=== PATIENT | female | born 1955 | race Caucasian/White ===

== ENCOUNTER 2024-10-01 09:25 | Emergency (ER) | payer OTHER ==
[2024-10-01] MEDS ORDERED: NA CHLORIDE 0.9% 500 ML ONE (09:48)
[2024-10-01] MEDS ORDERED: ASPIRIN 81 MG CHEWABLE TABLET ONE (09:48)
[2024-10-01] MEDS ORDERED: FAMOTIDINE 20 MG/2 ML VIAL IV ONE (09:48)
[2024-10-01 10:00] LABS: Absolute Basophils 0.1 K/uL (0-0.5); Absolute Eosinophils 0.3 K/uL (0-0.5); Absolute Lymphocytes (CBC) 1.7 K/uL (0.7-4.9); Absolute Monocytes 0.4 K/uL (0.1-1.3); Absolute Neutrophil 2.8 K/uL (1.8-8.0); Basophils % 1.2 % (0-1.3); Hematocrit 41.7 % (36.0-45.0); Hemoglobin 13.9 g/dL (12.0-15.0); Lymphocytes % 32.2 % (15.3-44.8); MCH 31.6 pg (27.0-35.0); MCHC 33.3 g/dL (32.0-36.0); MPV 8.3 fL (7.6-11.3); Monocytes % 7.3 % (3.3-12.3); Neutrophils % 54.3 % (41.7-73.7); Nucleated Red Blood Cells % 0.1 % (0-0); Platelets 214 thou/uL (152-406); RBC Red Blood Cell Count 4.39 M/uL (3.86-4.86); Red Cell Distribution Width 12.9 % (12.1-15.2)
[2024-10-01 10:08] LABS: PT Prothrombin Time 11.2 SECONDS (10-13.0); Protime INR 0.98
[2024-10-01 10:26] LABS: ALT/SGPT 25 U/L (13-56); AST/SGOT 20 U/L (15-37); Albumin 3.4 g/dL (3.4-5.0); Albumin/Globulin Ratio 1.1 (1.1-1.8); Alkaline Phosphatase 76 U/L (45-117); Anion Gap 7.8 mEq/L (5.0-15.0); BUN Blood Urea Nitrogen 7 mg/dL (7-18); Bicarbonate 27 mEq/L (21-32); Bilirubin Total 0.3 mg/dL (0.2-1.0); Globulin 3.2 g/dL (2.3-3.5); Glomerular Filtration Rate 94 ml/min (=/>90); Glucose Level 111 mg/dL (74-106); Lipase 27 U/L (13-75); Magnesium 2.3 mg/dL (1.6-2.4); NT PRO-BNP 181 pg/mL (<125); Potassium 3.8 mEq/L (3.5-5.1); Protein, Total 6.6 g/dL (6.4-8.2); Sodium Level 139 mEq/L (136-145)
[2024-10-01 10:28] LABS: Bilirubin Direct < 0.2 mg/dL (0-0.2); Bilirubin Indirect, Calculated 0.1 mg/dL (0.2-0.8); Troponin High Sensitivity < 3.0 pg/mL (<58.9)
--- NOTE | 2024-10-01 10:45 | RAD REPORT ---
EXAMINATION: ONE VIEW CHEST XR CLINICAL INDICATION: Female, 68 years old.,CHEST PAIN TECHNIQUE: Frontal chest projection is submitted. Examination is limited by patient positioning and t echnique. COMPARISON: 07/14/2020 FINDINGS: The lungs are well inflated and clear. Mild hyperlucency again seen. No pneumothorax or sizable effus ion. The heart is normal in size. Mediastinal contours are unremarkable. IMPRESSION: No acute intrathoracic abnormalities.
--- NOTE | 2024-10-01 11:21 | RAD REPORT ---
EXAM: CT CHEST, ABDOMEN AND PELVIS WITH CONTRAST CLINICAL INDICATION: Female, 68 years old. Chest pain;Abdominal distention TECHNIQUE: CT chest, abdomen, and pelvis was performed, following the administration of contrast, as per department protocol. Axial, sagittal and coronal reconstructions were obtained. One or more of the following dose reduction techniques were used: Automated exposure control, adjustment of the mA a nd/or kV according to patient size, and/or iterative reconstruction. Unless otherwise specified, incidental findings do not require dedicated imaging follow-up. COMPARISON: No prior exam. FINDINGS: LUNGS AND AIRWAYS: No evidence of airspace or interstitial process. No nodules. PLEURA: No pleural effusion. No pneumothorax. MEDIASTINUM AND LYMPH NODES: No mediastinal mass or fluid collection. Normal size mediastinal, hilar, and axillary lymph nodes. THORACIC AORTA: Mild fusiform dilation of the ascending thoracic aorta measuring 4.3 cm in caliber. PULMONARY ARTERIES: Normal caliber. OSSEOUS STRUCTURES AND CHEST WALL: Intact. LIVER: Normal in size and contour. No focal lesion or biliary dilitation. BILIARY SYSTEM: No suspicious abnormalities. PANCREAS: No mass, ductal dilation, or tena-pancreatic fluid. SPLEEN: Normal size. No focal lesion. ADRENALS: Normal; no mass. KIDNEYS AND URETERS: Right midpole 1.6 cm cortical fluid density cyst, and other smaller cortical hyp oattenuating foci on the left, may represent small cysts but difficult to characterize given small size. Normal size and contour. No hydronephrosis. URINARY BLADDER: Normal contour. GASTROINTESTINAL TRACT: No bowel obstruction, free air, significant free fluid or abscess. Mild dist al colonic diverticulosis without evidence of acute diverticulitis. APPENDIX: No inflammatory changes in region of appendix. LYMPH NODES: No lymphadenopathy. ABDOMINAL AORTA AND OTHER VESSELS: Normal caliber aorta and IVC. MUSCULOSKELETAL: No acute or suspicious osseous abnormality. Status post hysterectomy. IMPRESSION: No acute abnormalities seen in the chest, abdomen or pelvis. Mild fusiform aneurysmal dilation of the ascending thoracic aorta measuring 4.3 cm in caliber. Other incidental findings as above.
--- NOTE | 2024-10-01 11:24 | ER ---
Nurse's Notes [facility] Name: Irina Alcala Age: 68 yrs Sex: Female : 1955 Arrival Date: 10/01/2024 Time: 09:25 Bed 7 Private MD: Diagnosis: Chest pain, unspecified;Functional dyspepsia;Essential (primary) hypertension;Aortic aneurysm of unspecified site, without rupture Presentation: 10/01 09:25 Chief complaint: Patient states: Chest pain that began Tuesday, indigestion that began ss Tuesday. Coronavirus screen: Client denies travel out of the [place] in the last 14 days. Ebola Screen: Patient denies exposure to infectious person. Patient denies travel to an Ebola-affected area in the 21 days before illness onset. Initial Sepsis Screen: Does the patient meet any 2 criteria? No. Patient's initial sepsis screen is negative. Does the patient have a suspected source of infection? No. Patient's initial sepsis screen is negative. Risk Assessment: Do you want to hurt yourself or someone else? Patient reports no desire to harm self or others. Onset of symptoms was September 28, 2024. 09:25 Method Of Arrival: Ambulatory ss 09:25 Acuity: DONAVAN 3 ss Historical: - Allergies: 09:53 Codeine; ss - Home Meds: 09:53 levothyroxine oral [Active]; estradiol 1 mg oral tablet 1 tab daily [Active]; ss olmesartan 20 mg oral tablet 1 tab daily [Active]; - PMHx: 09:53 Hypothyroidism; Hypertensive disorder; ss - Immunization history:: Adult Immunizations up to date. - Infectious Disease History:: Denies. - Social history:: Smoking status: Patient denies any tobacco usage or history of. Screenin:19 [facility] ED Fall Risk Assessment (Adult) History of falling in the last 3 months, ll1 including since admission No falls in past 3 months (0 pts) Confusion or Disorientation No (0 pts) Intoxicated or Sedated No (0 pts) Impaired Gait No (0 pts) Mobility Assist Device Used No (0 pt) Altered Elimination No (0 pt) Score/Fall Risk Level 0 - 2 = Low Risk Maintained a safe environment, Hourly rounding (assess needs \T\ fall precautionary measures) done. Abuse screen: Denies threats or abuse. Nutritional screening: No deficits noted. Tuberculosis screening: No symptoms or risk factors identified. Assessment: 09:50 General: Appears uncomfortable, Behavior is calm, cooperative, appropriate for age. ll1 Pain: Complains of pain in chest and abdomen Quality of pain is described as aching. Neuro: No deficits noted. GI: Reports upper abdominal pain, nausea. 09:55 Reassessment: No changes from previously documented assessment. Patient and/or family ll1 updated on plan of care and expected duration. Pain level reassessed. Patient is alert, oriented x 3, equal unlabored respirations, skin warm/dry/pink. 12:13 Reassessment: No changes from previously documented assessment. Patient and/or family ll1 updated on plan of care and expected duration. Pain level reassessed. Patient is alert, oriented x 3, equal unlabored respirations, skin warm/dry/pink. 12:13 GI: Bowel sounds present X 4 quads. Abd is soft and non tender X 4 quads. ll1 Vital Signs: 09:25 BP 152 / 81; Pulse 65; Resp 14; Temp 98.6(TE); Pulse Ox 97% on R/A; Weight 77.11 kg; ss Height 5 ft. 3 in. ; Pain 2/10; 10:00 BP 151 / 76; Pulse 59; Resp 16; Pulse Ox 98% ; ll1 11:10 BP 145 / 82; Pulse 66; Resp 17; Pulse Ox 99% on R/A; ap3 12:13 BP 132 / 81; Pulse 65; Resp 16; Pulse Ox 99% ; ll1 09:25 Body Mass Index 30.11 (77.11 kg, 160.02 cm) ss 09:25 Pain Scale: Adult ss ED Course: 09:26 Patient arrived in ED. al6 09:29 Juni Kirkland MD is Attending Physician. suma 09:44 Maylin Kenney, ESTIVEN is Primary Nurse. ll1 09:52 Initial lab(s) drawn, by me, sent to lab. Inserted saline lock: 20 gauge in right zm antecubital area, using aseptic technique. Blood collected. Flushed with 10 mL NS. 09:53 Triage completed. ss 09:53 Basic Metabolic Panel Sent. zm 09:53 CBC with Diff Sent. zm 09:53 LFT's Sent. zm 09:53 Magnesium Sent. zm 09:53 NT PRO-BNP Sent. zm 09:53 PT-INR Sent. zm 09:53 Troponin HS Sent. zm 09:53 Lipase Sent. zm 09:53 Arm band placed on right wrist. ss 10:00 Provided Education on: ER procedures and process. ll1 10:04 XRAY Chest (1 view) In Process Unspecified. EDMS 10:20 Patient has correct armband on for positive identification. Bed in low position. Client ll1 placed on continuous cardiac and pulse oximetry monitoring. NIBP monitoring applied. case management coordinator on. 10:58 CT Chest, Abdomen, Pelvis - W/Contrast In Process Unspecified. EDMS 11:49 No provider procedures requiring assistance completed. ap3 12:14 IV discontinued, intact, bleeding controlled, No redness/swelling at site. Pressure ll1 dressing applied. Administered Medications: 09:54 Drug: NS 0.9% IV 500 ml 500 ml IV at 1 bolus once; to be given as a bolus over 30 ll1 minutes Volume: 500 ml; Route: IV; Rate: 1 bolus; Site: right antecubital; 11:48 Follow up: IV Status: Completed infusion; IV Intake: 500ml ap3 09:54 Not Given (took aspirin 325 MG PO at 0500 this morningg): aspirinchewable tablet 81 mg ll1 PO once 09:55 Drug: Famotidine IVP 20 mg IVP once; dilute with 10 mL 0.9% NaCl; give over 2 minutes ll1 Route: IVP; Site: right antecubital; 11:48 Follow up: Response: No adverse reaction ap3 11:48 Drug: ToPROL XL PO 25 mg PO once Route: PO; ap3 12:14 Follow up: Response: No adverse reaction ll1 Medication: 10:19 VIS not applicable for this client. ll1 Intake: 11:48 IV: 500ml; Total: 500ml. ap3 Outcome: 11:23 Discharge ordered by . suma 11:49 Discharge instructions given to patient, family, Instructed on discharge instructions, ap3 follow up and referral plans. medication usage, Demonstrated understanding of instructions, follow-up care, medications, Prescriptions given X 3, 12:14 Discharged to home ambulatory, ll1 12:14 Condition: stable 12:15 Patient left the ED. ll1 Signatures: Dispatcher [employer] EDJuni Louise MD MD cha Blanchard, Shelby, RN RN ss Evelyne Langston, RN RN ap3 Maylin Kenney, RN RN ll1 Gissell Duggan Alissa al6
--- NOTE | 2024-10-01 11:24 | EDPHYS ---
Physician Documentation [facility] Name: Irina Alcala Age: 68 yrs Sex: Female : 1955 Arrival Date: 10/01/2024 Time: 09:25 Bed 7 Private MD: ED Physician Juni Kirkland HPI: 10/01 10:51 This 68 yrs old Female presents to ER via Ambulatory with complaints of [facility] Abdominal Pain, Chest Pain, High Blood Pressure, Headache, Arm Pain - left arm. 10:51 The patient or guardian reports chest pain that is located primarily in the anterior [facility] chest wall, bilaterally. The pain does not radiate. Associated signs and symptoms: The patient has no apparent associated signs or symptoms. The chest pain is described as causing indigestion. Modifying factors: The symptoms are alleviated by nothing. the symptoms are aggravated by nothing. Severity of pain: At its worst the pain was mild in the emergency department the pain is unchanged. The patient has not experienced similar symptoms in the past. Historical: - Allergies: 09:53 Codeine; ss - Home Meds: 09:53 levothyroxine oral [Active]; estradiol 1 mg oral tablet 1 tab daily [Active]; ss olmesartan 20 mg oral tablet 1 tab daily [Active]; - PMHx: 09:53 Hypothyroidism; Hypertensive disorder; ss - Immunization history:: Adult Immunizations up to date. - Infectious Disease History:: Denies. - Social history:: Smoking status: Patient denies any tobacco usage or history of. ROS: 10:56 Constitutional: Negative for fever, chills, and weight loss, Eyes: Negative for injury, suma pain, redness, and discharge, ENT: Negative for injury, pain, and discharge, Neck: Negative for injury, pain, and swelling, Respiratory: Negative for shortness of breath, cough, wheezing, and pleuritic chest pain, Back: Negative for injury and pain, : Negative for injury, bleeding, discharge, and swelling, MS/Extremity: Negative for injury and deformity, Skin: Negative for injury, rash, and discoloration, Psych: Negative for depression, anxiety, suicide ideation, homicidal ideation, and hallucinations, Allergy/Immunology: Negative for hives, rash, and allergies, Endocrine: Negative for neck swelling, polydipsia, polyuria, polyphagia, and marked weight changes, Hematologic/Lymphatic: Negative for swollen nodes, abnormal bleeding, and unusual bruising, 10:56 Cardiovascular: Positive for chest pain, 10:56 Abdomen/GI: Positive for abdominal pain, 10:56 Neuro: Positive for dizziness, Exam: 10:56 Constitutional: This is a well developed, well nourished patient who is awake, alert, suma and in no acute distress. Head/Face: Normocephalic, atraumatic. Eyes: Pupils equal round and reactive to light, extra-ocular motions intact. Lids and lashes normal. Conjunctiva and sclera are non-icteric and not injected. Cornea within normal limits. Periorbital areas with no swelling, redness, or edema. ENT: Nares patent. No nasal discharge, no septal abnormalities noted. Tympanic membranes are normal and external auditory canals are clear. Oropharynx with no redness, swelling, or masses, exudates, or evidence of obstruction, uvula midline. Mucous membranes moist. Neck: Trachea midline, no thyromegaly or masses palpated, and no cervical lymphadenopathy. Supple, full range of motion without nuchal rigidity, or vertebral point tenderness. No Meningismus. Chest/axilla: Normal chest wall appearance and motion. Nontender with no deformity. No lesions are appreciated. Cardiovascular: Regular rate and rhythm with a normal S1 and S2. No gallops, murmurs, or rubs. Normal PMI, no JVD. No pulse deficits. Respiratory: Lungs have equal breath sounds bilaterally, clear to auscultation and percussion. No rales, rhonchi or wheezes noted. No increased work of breathing, no retractions or nasal flaring. Abdomen/GI: Soft, non-tender, with normal bowel sounds. No distension or tympany. No guarding or rebound. No evidence of tenderness throughout. Back: No spinal tenderness. No costovertebral tenderness. Full range of motion. Skin: Warm, dry with normal turgor. Normal color with no rashes, no lesions, and no evidence of cellulitis. MS/ Extremity: Pulses equal, no cyanosis. Neurovascular intact. Full, normal range of motion., bilateral aka Neuro: Awake and alert, GCS 15, oriented to person, place, time, and situation. Cranial nerves II-XII grossly intact. Motor strength 5/5 in all extremities. Sensory grossly intact. Cerebellar exam normal. Normal gait. Psych: Awake, alert, with orientation to person, place and time. Behavior, mood, and affect are within normal limits. 10:56 ECG was reviewed by the Attending Physician. 10:56 Musculoskeletal/extremity: DVT Exam: No signs of deep vein thrombosis. no pain, no swelling, no tenderness, negative Homans' sign noted on exam, no appreciated bluish discoloration, no erythema, no increased warmth, Vital Signs: 09:25 BP 152 / 81; Pulse 65; Resp 14; Temp 98.6(TE); Pulse Ox 97% on R/A; Weight 77.11 kg; ss Height 5 ft. 3 in. ; Pain 2/10; 10:00 BP 151 / 76; Pulse 59; Resp 16; Pulse Ox 98% ; ll1 11:10 BP 145 / 82; Pulse 66; Resp 17; Pulse Ox 99% on R/A; ap3 12:13 BP 132 / 81; Pulse 65; Resp 16; Pulse Ox 99% ; ll1 09:25 Body Mass Index 30.11 (77.11 kg, 160.02 cm) ss 09:25 Pain Scale: Adult ss MDM: 09:29 Medical Screening Exam initiated suma 11:01 HEART Score: History: Slightly Suspicious (0), ECG: Normal (0), Age: > or = 65 years suma (2), Risk Factors: > or = 3 Risk factors for atherosclerotic disease (2), [Hypertension] [+ Family HX] Troponin: < or = 1 x Normal Limit (0), Total Score = 2. The patient was given aspirin in the Emergency Department. COURTNEY Risk Score: 1 - patient's age is greater or equal to 65 years, 1 - Three or more CAD risk factors, 1- Known CAD, 1 - ASA use in past 7 days, TOTAL SCORE = 4. Data reviewed: vital signs, nurses notes, lab test result(s), EKG, radiologic studies, CT scan, plain films. Consideration of Admission/Observation Patient was admitted/placed on observation. Escalation of care including admission/observation considered. I considered the following discharge prescriptions or medication management in the emergency department Medications were administered in the Emergency Department. See MAR. Independent interpretation of the following test(s) in the Emergency Department EKG: See my EKG interpretation above. Historians other than the Patient: pt well informed. 10/01 09:31 Order name: Basic Metabolic Panel; Complete Time: 11:20 [facility] 10/01 09:31 Order name: CBC with Diff; Complete Time: 11:20 [facility] 10/01 09:31 Order name: LFT's; Complete Time: 11:20 [facility] 10/01 09:31 Order name: Magnesium; Complete Time: 11:20 [facility] 10/01 09:31 Order name: NT PRO-BNP; Complete Time: 11:20 [facility] 10/01 09:31 Order name: PT-INR; Complete Time: 11:20 10/01 09:31 Order name: Troponin HS; Complete Time: 11:20 [facility] 10/01 09:31 Order name: Lipase; Complete Time: 11:20 [facility] 10/01 09:31 Order name: XRAY Chest (1 view); Complete Time: 11:20 [facility] 10/01 09:31 Order name: CT Chest, Abdomen, Pelvis - W/Contrast; Complete Time: 11:36 [facility] 10/01 09:31 Order name: Cardiac monitoring; Complete Time: 09:55 [facility] 10/01 09:31 Order name: EKG - Nurse/Tech; Complete Time: 09:53 10/01 09:31 Order name: IV Saline Lock; Complete Time: 09:53 [facility] 10/01 09:31 Order name: Labs collected and sent; Complete Time: 09:53 [facility] 10/01 09:31 Order name: O2 Per Protocol; Complete Time: 09:45 [facility] 10/01 09:31 Order name: O2 Sat Monitoring; Complete Time: 09:45 [facility] EC:56 Rate is 71 beats/min. Rhythm is regular. QRS [place] is Normal. NC interval is normal. QRS suma interval is normal. QT interval is normal. No Q waves. T waves are Normal. No ST changes noted. Clinical impression: Normal ECG and No evidence of ischemia. Interpreted by me. Reviewed by me. Administered Medications: 09:54 Drug: NS 0.9% IV 500 ml 500 ml IV at 1 bolus once; to be given as a bolus over 30 ll1 minutes Volume: 500 ml; Route: IV; Rate: 1 bolus; Site: right antecubital; 11:48 Follow up: IV Status: Completed infusion; IV Intake: 500ml ap3 09:54 Not Given (took aspirin 325 MG PO at 0500 this morningg): aspirinchewable tablet 81 mg ll1 PO once 09:55 Drug: Famotidine IVP 20 mg IVP once; dilute with 10 mL 0.9% NaCl; give over 2 minutes ll1 Route: IVP; Site: right antecubital; 11:48 Follow up: Response: No adverse reaction ap3 11:48 Drug: ToPROL XL PO 25 mg PO once Route: PO; ap3 12:14 Follow up: Response: No adverse reaction ll1 Disposition Summary: 10/01/24 11:23 Discharge Ordered Notes: Location: Home suma Problem: new suma Symptoms: have improved suma Condition: Stable suma Diagnosis - Chest pain, unspecified suma - Functional dyspepsia suma - Essential (primary) hypertension suma - Aortic aneurysm of unspecified site, without rupture suma Followup: suma - With: Private Physician - When: 2 - 3 days - Reason: Recheck today's complaints, Continuance of care, Re-evaluation by your physician Discharge Instructions: - Discharge Summary Sheet suma - Thoracic Aortic Aneurysm suma - Nonspecific Chest Pain, Adult suma - Hypertension, Adult suma - Indigestion suma - Nonspecific Chest Pain, Adult, [id number] suma - Hypertension, Adult, [id number] suma - How to Take Your Blood Pressure, [id number] suma - Aspirin and Your Heart suma - Managing Your Hypertension suma Forms: - Medication Reconciliation Form suma - Antibiotic Education suma - Prescription Opioid Use suma - Patient Portal Instructions [facility] - Leadership Thank You Letter [facility] Prescriptions: - ondansetron 4 mg Oral Tablet,disintegrating - take 1 tablet ORAL route 3 times per day for 5 days prn n/v; 20 tablet; [facility] Refills: 0, Product Selection Permitted - Pepcid 20 mg Oral Tablet - take 1 tablet ORAL route every 12 hours for 10 days; 20 tablet; Refills: 0, suma Product Selection Permitted - Toprol XL 25 mg Oral Tablet - take 1 tablet ORAL route once daily; 20 tablet; Refills: 0, Product Selection suma Permitted Signatures: Dispatcher [employer] EDMS Juni Kirkland MD MD cha Blanchard, Shelby, RN RN ss Evelyne Langston RN RN ap3 Maylin Kenney RN RN ll1 Corrections: (The following items were deleted from the chart) 09:32 09:32 BASIC METABOLIC PANEL+C.LAB.BRZ ordered. EDMS EDMS 09:32 09:32 CBC+H.LAB.BRZ ordered. EDMS EDMS 09:32 09:32 HEPATIC FUNCTION+C.LAB.BRZ ordered. EDMS EDMS 09:32 09:32 MAGNESIUM+C.LAB.BRZ ordered. EDMS EDMS 09:32 09:32 PROBNP+C.LAB.BRZ ordered. EDMS EDMS 09:32 09:32 PROTIME (+INR)+COAG.LAB.BRZ ordered. EDMS EDMS 09:32 09:32 Troponin High Sensitivity+C.LAB.BRZ ordered. EDMS EDMS 09:32 09:32 LIPASE+C.LAB.BRZ ordered. EDMS EDMS 09:32 09:32 Urinalysis+U.LAB.BRZ ordered. EDMS EDMS 09:32 09:32 Chest Single View+RAD.RAD.BRZ ordered. EDMS EDMS 09:32 09:32 Chest Abdomen Pelvis W Con+CT.RAD.BRZ ordered. EDMS EDMS
[2024-10-01] MEDS ORDERED: METOPROLOL XL 50 MG TAB PO ONE (11:43)
[2024-10-01 12:33] VITALS: TEMP 98.6
[2024-10-01 12:40] VITALS: O2SAT 99
[2024-10-01 12:41] VITALS: BP 132/81
--- NOTE | 2024-10-02 11:01 | EKG ---
Test Date: 2024-10-01 Test Time: 08:49:35 Medium Cycle Salesperson: VENUS MEASUREMENT RESULTS: Intervals: Rate: 71 LA: 152 QRSD: 94 QT: 438 QTc: 475 Ansley: P: 44 LA: 152 QRS: 5 T: 46 INTERPRETIVE STATEMENTS: Normal sinus rhythm Normal ECG Compared to ECG 02/10/2008 04:42:55 Sinus bradycardia no longer present Myocardial infarct finding no longer present Electronically Signed On 10-02-24 10:57:38 CDT by Yair Torres
== END 2024-10-01 12:15 | disposition home or self-care (01) ==
LOC: ER 09:25
DX: K30 Functional dyspepsia (principal); I10 Essential (primary) hypertension; I71.20 Thoracic aortic aneurysm, without rupture, unspecified
CPT/HCPCS: 96361; 93005; 85025; 80048; 36415; 83735; 85610; 80076; 84484; 83690; 83880; 71260; 74177; 71045; 96374; 99285; Q9967; J7040